=== PATIENT | female | born 1960 | race Caucasian/White ===

== ENCOUNTER 2018-03-28 12:34 | Emergency (ER) | payer OTHER, MEDICAID, SELFPAY ==
[2018-03-28] VITALS (8 sets, daily range): BP systolic 105–135; BP diastolic 56–90; PULSE 69–114; RESP 15–21; TEMP 37.6–38.8; O2SAT 97–100; BMI 21.9
--- NOTE | 2018-03-28 12:48 | DI.RAD.S_ITS ---
PROCEDURE: XR CHEST 1V INDICATIONS: suspected sepsis TECHNIQUE: One view of the chest was acquired. COMPARISON: None. FINDINGS: Surgical changes and devices: None. Lungs and pleura: Lungs are clear. No pleural effusions or pneumothorax. Mediastinum: Mediastinal contours appear normal. Heart size is normal. Bones and chest wall: No suspicious bony lesions. Overlying soft tissues appear unremarkable. IMPRESSION: No acute cardiopulmonary pathology. Dictated by: Owen Mayo M.D. on 03/28/2018 at 13:21 Approved by: Owen Mayo M.D. on 03/28/2018 at 13:21
[2018-03-28 13:28] LABS: Add Manual Diff / Slide Review NO; Basophils Absolute Auto 0 /uL (0-100); Basophils Percent Auto 0.1 % (0-2); Eosinophils Absolute Auto 0 /uL (0-450); Eosinophils Percent Auto 0.1 % (2-4); Hematocrit 41.6 % (36-46); Hemoglobin 13.8 g/dL (12.0-16.0); Lymphocytes Absolute Auto 1000 /uL (1100-4500); Lymphocytes Percent Auto 5.4 % (25-40); Mean Corpuscular HGB Conc 33.1 % (30-36); Mean Corpuscular Hemoglobin 31.2 PG (26-34); Mean Corpuscular Volume 94.3 fL (80-100); Monocytes Absolute Auto 800 /uL (0-900); Monocytes Percent Auto 4.3 % (3-14); Neutrophils Absolute Auto 16200 /uL (1500-7000); Neutrophils Percent Auto 90.1 % (50-75); Platelet Count 293 X10^3/uL (150-400); Red Blood Cell Count 4.41 X10^6/uL (4.0-5.2); Red Cell Distribution Width 12.9 % (11.6-14.8)
[2018-03-28] MEDS: IBUPROFEN 400 MG TABLET 800 MG PO (13:38)
[2018-03-28 13:39] LABS: INR 1.1 (0.9-1.3); Prothrombin Time 12.7 SECONDS (10.1-12.7)
[2018-03-28] MEDS: SODIUM CHLORIDE 0.9% 1,000 ML 1000 ML IV (13:39)
[2018-03-28 13:42] LABS: PTT Partial Thromboplastin Tim 31 SECONDS (26.4-36.2)
[2018-03-28 13:49] LABS: Alanine Aminotransferase 19 IU/L (9-52); Albumin Globulin Ratio 1.5 (1.0-2.8); Alkaline Phosphatase 112 U/L (38-126); Aspartate Aminotransferase 20 IU/L (14-36); BUN Creatinine Ratio 17.1 (6-22); Bilirubin Total 0.7 mg/dL (0.2-1.3); Blood Urea Nitrogen 12 mg/dL (7-17); Calcium 9.7 mg/dL (8.4-10.2); Carbon Dioxide 26 mmol/L (22-32); Chloride 99 mmol/L (98-107); Estimated Glomerular Filt Rate > 60.0 mL/min (>60); Globulin 3.4 g/dL (1.7-4.1); Glucose 117 mg/dL (70-100); HEMOLYSIS < 15 (0-50); Lipase 49 U/L (23-300); Potassium 3.6 mmol/L (3.4-5.1); Sodium 138 mmol/L (137-145); Total Protein 8.4 g/dL (6.3-8.2)
[2018-03-28 13:51] LABS: Lactate (Lactic Acid) 0.9 mmol/L (0.7-2.1)
[2018-03-28 13:55] LABS: Influenza A and B by PCR Rapid Negative (Negative)
--- NOTE | 2018-03-28 14:12 | ED.ABDPAIN ---
HPI - Abdominal Pain General Chief Complaint: Abdominal Pain Stated Complaint: right side abdominal pain and fever and chills Time Seen by Provider: 03/28/18 12:46 Source: patient Mode of arrival: ambulatory Limitations: no limitations History of Present Illness HPI narrative: Patient complains of right flank pain for months, but states that has gotten worse over the last couple of days. She states she has also had a sore throat and has been urinating a lot. Patient states she has not had any dysuria. No diarrhea. No vomiting, though she has been a little bit nauseated. No cough or shortness of breath. No chest pain. Patient states that her pain right now is about a 3/10, though it does get worse, to about a 5/10. No blood in her urine. No other complaints at this time. Related Data Home Medications Medication Instructions Recorded Confirmed Vitamin D3 1 cap PO DAILY 03/28/18 03/28/18 biotin 1 dose PO DAILY 03/28/18 03/28/18 tobramycin-dexamethasone 1 applic EYE-LEFT DIRECTED 03/28/18 03/28/18 vitamin E 1 cap PO DAILY 03/28/18 03/28/18 Allergies Allergy/AdvReac Type Severity Reaction Status Date / Time No Known Drug Allergies Allergy Verified 03/28/18 12:42 Review of Systems Review of Systems ROS Unobtainable: All systems reviewed & are unremarkable except as noted in HPI and below Constitutional Denies chills, Denies fever(s), Denies lethargy and Denies weakness Eyes Denies change in vision, Denies eye discharge, Denies irritation and Denies loss of vision ENT Ears, Nose, Mouth, and Throat: Denies change in voice, Denies neck pain and Denies sore throat Cardiovascular Denies chest pain, Denies irregular heart rhythm, Denies lightheadedness, Denies palpitations, Denies dyspnea, Denies dyspnea on exertion and Denies orthopnea Respiratory Denies cough, Denies dyspnea, Denies dyspnea on exertion and Denies wheezing Gastrointestinal Gastrointestinal: Reports abdominal pain, Denies change in bowel habits, Denies diarrhea, Reports nausea and Denies vomiting Genitourinary Denies hematuria, Denies flank pain, Denies urinary incontinence and Denies urinary urgency Musculoskeletal Denies neck pain Integumentary/Breasts Denies pruritus, Denies erythema, Denies rash and Denies wounds Neurologic Denies confusion, Denies loss of vision and Denies weakness Psychiatric Denies anxiety, Denies confusion, Denies depression, Denies homicidal ideation and Denies suicidal ideation Endocrine Denies palpitations Hematologic/Lymphatic Denies easy bruising Allergic/Immunologic Denies wheezing [facility] Medical History Abdominal pain (Acute) Surgical History History of cholecystectomy (Acute) Social History Smoking Status: Never smoker Social History Smoking Status: Never smoker Exam Initial Vital Signs Initial Vital Signs: Vital Signs Temperature 101.9 F H 03/28/18 12:38 Pulse Rate 114 H 03/28/18 12:38 Respiratory Rate 18 03/28/18 12:38 Blood Pressure 130/90 03/28/18 12:38 Pulse Oximetry 97 03/28/18 12:38 Const General: cooperative and well developed Nutritional Appearance: well nourished Orientation: alert, awake, oriented x3 and not confused HENCT Head: normocephalic and atraumatic Ears: external ears normal Nose: external nose normal and No nasal discharge Face and sinus: face symmetric and No dry mucous membranes Mouth: oral mucosae normal and moist mucous membranes Teeth and gingiva: dentition normal Eyes General: appearance normal, both eyes and all related structures Eyelids: eyelids normal Conjunctivae: conjunctivae normal Sclera: sclerae normal Pupils: PERRL EOM: EOM intact bilaterally Neck Neck: normal visual inspection, trachea midline, No lymphadenopathy, No midline deformity and No JVD Lymphatic: No lymphedema Chest Chest: normal inspection of the chest Resp Effort & Inspection: normal respiratory effort, able to speak in complete sentences, no respiratory distress and no use of accessory muscles Auscultation: clear to auscultation bilaterally, no rales, no rhonchi and no wheezes Cardio Rate: regular rate Rhythm: regular rhythm Heart Sounds: no click, no gallops, no murmurs and no rubs Pulses: normal peripheral pulses GI Inspection: non-distended Palpation: soft, no hepatosplenomegaly, No guarding, No pulsatile mass and No tender Auscultation: normal bowel sounds Back/Spine/Pelvis Back: No CVA tenderness Cervical Spine: cervical ROM normal and No pain with cervical ROM Thoracic/Lumbar Spine: thoracic and lumbar spine normal to inspection Skin General: no rashes or lesions noted, No jaundice and No petechiae Neuro General: alert, oriented x3, gait normal and no focal motor deficits Speech: speech normal Extrem General: full ROM, no clubbing, cyanosis or edema, no pedal edema and no calf tenderness Psych Appearance: well kempt Mental Status: mental status grossly normal Attitude: cooperative Thought Content: normal and suicidality Judgment: judgment good Course Course Narrative: Patient was worked up with labs, influenza, UA and rapid strep, all of which were negative, other than a leukocytosis. CT scan of the abdomen and pelvis with IV contrast was performed to evaluate the patient's right flank and abdominal pain, and this was also unremarkable. I did not find evidence of a serious or emergent condition the patient. I discussed with her that she most likely has 1 of the many viral illnesses which are going around her, and that this will be self-limited. We have discussed the usual indications for return, as well as symptomatic management at home. Orders Ordered: ED Orders 03/28/18 12:48 XR chest 1V Stat 03/28/18 13:15 Complete Blood Count AUTO DIFF Stat Comprehensive Metabolic Panel Stat Influenza A and B by PCR Rapid Stat Lactate (Lactic Acid) Stat Lipase Stat Partial Thromboplastin Time Stat Procalcitonin Stat Prothrombin Time INR Stat 03/28/18 13:25 Blood Culture Stat 03/28/18 15:04 CT abdomen pelvis w con Stat 03/28/18 17:11 Strep Grp A by PCR Rapid Stat Discontinued Medications Acetaminophen (Tylenol) 975 mg PO NOW ONE Stop: 03/28/18 12:50 Last Admin: 03/28/18 13:29 Dose: Not Given Sodium Chloride (Normal Saline 0.9%) 1,000 mls @ 1,000 mls/hr IV BOLUS ONE Stop: 03/28/18 13:47 Last Infusion: 03/28/18 15:02 Dose: 0 mls/hr Admin: 03/28/18 13:39 Dose: 1,000 mls/hr Ibuprofen (Advil) 800 mg PO NOW ONE Stop: 03/28/18 12:50 Last Admin: 03/28/18 13:38 Dose: 800 mg Vital Signs - 8 hr 03/28/18 12:38 03/28/18 13:04 03/28/18 14:20 Temperature 101.9 F H 99.7 F H Pulse Rate 114 H 94 H 90 Respiratory Rate 18 17 16 Blood Pressure 130/90 Blood Pressure [Right Arm] 133/78 123/76 Pulse Oximetry 97 98 98 03/28/18 14:30 03/28/18 16:21 03/28/18 17:25 Temperature Pulse Rate 89 84 73 Respiratory Rate 15 21 19 Blood Pressure Blood Pressure [Right Arm] 135/67 124/75 115/56 L Pulse Oximetry 98 97 98 03/28/18 18:07 03/28/18 18:53 Temperature Pulse Rate 89 69 Respiratory Rate 19 16 Blood Pressure 105/62 Blood Pressure [Right Arm] 120/79 Pulse Oximetry 100 99 MDM - Abdominal Pain Medical Records Attestation: I reviewed the patient's medical records. Lab Data Attestation: I reviewed the patient's lab results. Result diagrams: 03/28/18 13:15 03/28/18 13:15 Lab Results 03/28/18 03/28/18 03/28/18 Range/Units 13:15 13:15 13:15 WBC 18.0 H (4.5-11.0) X10^3/uL RBC 4.41 (4.0-5.2) X10^6/uL Hgb 13.8 (12.0-16.0) g/dL Hct 41.6 (36-46) % MCV 94.3 (80-100) fL MCH 31.2 (26-34) PG MCHC 33.1 (30-36) % RDW 12.9 (11.6-14.8) % Plt Count 293 (150-400) X10^3/uL Neut % (Auto) 90.1 H (50-75) % Lymph % (Auto) 5.4 L (25-40) % [place] % (Auto) 4.3 (3-14) % Eos % (Auto) 0.1 L (2-4) % Baso % (Auto) 0.1 (0-2) % Neut # (Auto) 90427 H (3235-3273) /uL Lymph # (Auto) 1000 L (5796-1432) /uL [place] # (Auto) 800 (0-900) /uL Eos # (Auto) 0 (0-450) /uL Baso # (Auto) 0 (0-100) /uL PT 12.7 (10.1-12.7) SECONDS INR 1.1 (0.9-1.3) APTT 31 (26.4-36.2) SECONDS Sodium (137-145) mmol/L Potassium (3.4-5.1) mmol/L Chloride (98-107) mmol/L Carbon Dioxide (22-32) mmol/L BUN (7-17) mg/dL Creatinine (0.52-1.04) mg/dL Estimated GFR (>60) mL/min BUN/Creatinine Ratio (6-22) Glucose (70-100) mg/dL Lactate (0.7-2.1) mmol/L Calcium (8.4-10.2) mg/dL Total Bilirubin (0.2-1.3) mg/dL AST (14-36) IU/L ALT (9-52) IU/L Alkaline Phosphatase (38-126) U/L Total Protein (6.3-8.2) g/dL Albumin (3.5-5.0) g/dL Globulin (1.7-4.1) g/dL Albumin/Globulin Ratio (1.0-2.8) Lipase (23-300) U/L Procalcitonin < 0.05 (<0.5) ng/mL Influenza A & B (PCR) (Negative) 03/28/18 03/28/18 03/28/18 Range/Units 13:15 13:15 13:15 WBC (4.5-11.0) X10^3/uL RBC (4.0-5.2) X10^6/uL Hgb (12.0-16.0) g/dL Hct (36-46) % MCV (80-100) fL MCH (26-34) PG MCHC (30-36) % RDW (11.6-14.8) % Plt Count (150-400) X10^3/uL Neut % (Auto) (50-75) % Lymph % (Auto) (25-40) % [place] % (Auto) (3-14) % Eos % (Auto) (2-4) % Baso % (Auto) (0-2) % Neut # (Auto) (5655-1383) /uL Lymph # (Auto) (9316-5430) /uL [place] # (Auto) (0-900) /uL Eos # (Auto) (0-450) /uL Baso # (Auto) (0-100) /uL PT (10.1-12.7) SECONDS INR (0.9-1.3) APTT (26.4-36.2) SECONDS Sodium 138 (137-145) mmol/L Potassium 3.6 (3.4-5.1) mmol/L Chloride 99 (98-107) mmol/L Carbon Dioxide 26 (22-32) mmol/L BUN 12 (7-17) mg/dL Creatinine 0.70 (0.52-1.04) mg/dL Estimated GFR > 60.0 (>60) mL/min BUN/Creatinine Ratio 17.1 (6-22) Glucose 117 H (70-100) mg/dL Lactate 0.9 (0.7-2.1) mmol/L Calcium 9.7 (8.4-10.2) mg/dL Total Bilirubin 0.7 (0.2-1.3) mg/dL AST 20 (14-36) IU/L ALT 19 (9-52) IU/L Alkaline Phosphatase 112 (38-126) U/L Total Protein 8.4 H (6.3-8.2) g/dL Albumin 5.0 (3.5-5.0) g/dL Globulin 3.4 (1.7-4.1) g/dL Albumin/Globulin Ratio 1.5 (1.0-2.8) Lipase 49 (23-300) U/L Procalcitonin (<0.5) ng/mL Influenza A & B (PCR) Negative (Negative) Point of care testing: Point of Care Testing Rapid Strep A Negative Urine Dip Bedside Urine Glucose Negative Bedside Urine Bilirubin - Negative Bedside Urine Ketone - Negative Urine Specific [place] 1.005 Bedside Urine Occult Blood - Negative Bedside Urine pH 6.5 Bedside Urine Protein - Negative Bedside Urine Urobilinogen - Negative Bedside Urine Nitrite - Negative Bedside Urine Leukocytes - Negative Esterase Imaging Data Chest x-ray: Radiologist's impression: [address] [address] XRay Report Signed Patient: Monisha Monge RMR#: [id number] : 1Acct:[id number] Age/Sex: 58 / FDate of Service: 03/28/18 Loc: ED Accession Number: [id number] Procedure: XR chest 1V Ordering Provider: Aaliyah Mejias MD PROCEDURE: XR CHEST 1V INDICATIONS: suspected sepsis TECHNIQUE: One view of the chest was acquired. COMPARISON: None. FINDINGS: Surgical changes and devices: None. Lungs and pleura: Lungs are clear. No pleural effusions or pneumothorax. Mediastinum: Mediastinal contours appear normal. Heart size is normal. Bones and chest wall: No suspicious bony lesions. Overlying soft tissues appear unremarkable. IMPRESSION: No acute cardiopulmonary pathology. Dictated by: Owen Mayo M.D. on 03/28/2018 at 13:21 Approved by: Owen Mayo M.D. on 03/28/2018 at 13:21 CT scan - abdomen: Radiologist's impression: PROCEDURE: CT ABDOMEN PELVIS W CON INDICATIONS: Right abdominal pain for over 1 week TECHNIQUE: After the administration of intravenous contrast, 5 mm thick sections acquired from the diaphragm to the symphysis. 5 mm coronal and sagittal reformats were acquired. For radiation dose reduction, the following was used: automated exposure control, adjustment of mA and/or kV according to patient size. COMPARISON: None. FINDINGS: Image quality: Excellent. ABDOMEN: Lung bases: Lung bases are clear. Heart size is normal. Solid organs: Liver is normal in size and enhancement. Gallbladder has been previously resected. Biliary system is non dilated. Pancreas enhances normally. Spleen is normal in size and enhancement. No adrenal nodules. Kidneys demonstrate normal size and enhancement, without hydronephrosis. Peritoneum and bowel: Bowel loops demonstrate normal wall thickness and caliber. No free fluid or air. Nodes and vessels: No retroperitoneal or mesenteric adenopathy by size criteria. Aorta and inferior vena cava are normal in size. Miscellaneous: No ventral hernias. PELVIS: Genitourinary: Bladder wall thickness is normal. Miscellaneous: No inguinal hernias or adenopathy. Bones: No suspicious bony lesions. No vertebral body compression fractures. IMPRESSION: A normal or abnormal appendix could not be located but no secondary CT evidence of acute appendicitis is found. Through the right urinary tract no inflammation or calculus is seen. Prior cholecystectomy, without biliary distention. Incidental mode is made of a small water density cyst of the right posterior hepatic segment mid liver level. Dictated by: Stephon Devine M.D. on 03/28/2018 at 15:33 Approved by: Stephon Devine M.D. on 03/28/2018 at 15:35 Discharge Plan Departure Patient Disposition: Home Clinical Impression: Abdominal pain Discharge Date/Time: 03/28/18 18:53 Interventions: ED Discharge Assessment Last Done: 03/28/18 18:53 Instructions: DI for Abdominal Pain-Adult, DI for Viral Syndrome Activity Restrictions/Additional Instructions: Your tests look good for the most part. Your white blood cell count is elevated, but there is no sign of a bacterial infection. Your CT scan is unremarkable. You most likely have 1 of the many viruses are going around this time of year. This will pass on its own. Your ongoing right flank pain may be due to scar tissue that has formed since your gallbladder was removed. If this continues to be an issue for you, you can talk to your surgeon about having the scar tissue cut apart with another surgery. However, the scarring can recur sometimes, even if you have this done. Prescriptions: No Action tobramycin-dexamethasone 0.3-0.1 % drops,suspension 1 applic EYE-LEFT DIRECTED RF: 0 Vitamin D3 1 cap PO DAILY RF: 0 biotin 1 dose PO DAILY RF: 0 vitamin E 1 cap PO DAILY RF: 0 Referrals: [facility] [Provider Group]
[2018-03-28 14:14] LABS: Procalcitonin < 0.05 ng/mL (<0.5)
--- NOTE | 2018-03-28 14:17 | ED_ITS ---
HPI - Abdominal Pain General Chief Complaint: Abdominal Pain Stated Complaint: right side abdominal pain and fever and chills Time Seen by Provider: 03/28/18 12:46 Source: patient Mode of arrival: ambulatory Limitations: no limitations History of Present Illness HPI narrative: Patient complains of right flank pain for months, but states that has gotten worse over the last couple of days. She states she has also had a sore throat and has been urinating a lot. Patient states she has not had any dysuria. No diarrhea. No vomiting, though she has been a little bit nauseated. No cough or shortness of breath. No chest pain. Patient states that her pain right now is about a 3/10, though it does get worse, to about a 5/ 10. No blood in her urine. No other complaints at this time. Related Data Home Medications Medication Instructions Recorded Confirmed Vitamin D3 1 cap PO DAILY 03/28/18 03/28/18 biotin 1 dose PO DAILY 03/28/18 03/28/18 tobramycin-dexamethasone 1 applic EYE-LEFT DIRECTED 03/28/18 03/28/18 vitamin E 1 cap PO DAILY 03/28/18 03/28/18 Allergies Allergy/AdvReac Type Severity Reaction Status Date / Time No Known Drug Allergies Allergy Verified 03/28/18 12:42 Review of Systems Review of Systems ROS Unobtainable: All systems reviewed & are unremarkable except as noted in HPI and below Constitutional Denies chills, Denies fever(s), Denies lethargy and Denies weakness Eyes Denies change in vision, Denies eye discharge, Denies irritation and Denies loss of vision ENT Ears, Nose, Mouth, and Throat: Denies change in voice, Denies neck pain and Denies sore throat Cardiovascular Denies chest pain, Denies irregular heart rhythm, Denies lightheadedness, Denies palpitations, Denies dyspnea, Denies dyspnea on exertion and Denies orthopnea Respiratory Denies cough, Denies dyspnea, Denies dyspnea on exertion and Denies wheezing Gastrointestinal Gastrointestinal: Reports abdominal pain, Denies change in bowel habits, Denies diarrhea, Reports nausea and Denies vomiting Genitourinary Denies hematuria, Denies flank pain, Denies urinary incontinence and Denies urinary urgency Musculoskeletal Denies neck pain Integumentary/Breasts Denies pruritus, Denies erythema, Denies rash and Denies wounds Neurologic Denies confusion, Denies loss of vision and Denies weakness Psychiatric Denies anxiety, Denies confusion, Denies depression, Denies homicidal ideation and Denies suicidal ideation Endocrine Denies palpitations Hematologic/Lymphatic Denies easy bruising Allergic/Immunologic Denies wheezing [facility] Medical History Abdominal pain (Acute) Surgical History History of cholecystectomy (Acute) Social History Smoking Status: Never smoker Social History Smoking Status: Never smoker Exam Initial Vital Signs Initial Vital Signs: Vital Signs Temperature 101.9 F H 03/28/18 12:38 Pulse Rate 114 H 03/28/18 12:38 Respiratory Rate 18 03/28/18 12:38 Blood Pressure 130/90 03/28/18 12:38 Pulse Oximetry 97 03/28/18 12:38 Const General: cooperative and well developed Nutritional Appearance: well nourished Orientation: alert, awake, oriented x3 and not confused [place] Head: normocephalic and atraumatic Ears: external ears normal Nose: external nose normal and No nasal discharge Face and sinus: face symmetric and No dry mucous membranes Mouth: oral mucosae normal and moist mucous membranes Teeth and gingiva: dentition normal Eyes General: appearance normal, both eyes and all related structures Eyelids: eyelids normal Conjunctivae: conjunctivae normal Sclera: sclerae normal Pupils: PERRL EOM: EOM intact bilaterally Neck Neck: normal visual inspection, trachea midline, No lymphadenopathy, No midline deformity and No JVD Lymphatic: No lymphedema Chest Chest: normal inspection of the chest Resp Effort & Inspection: normal respiratory effort, able to speak in complete sentences, no respiratory distress and no use of accessory muscles Auscultation: clear to auscultation bilaterally, no rales, no rhonchi and no wheezes Cardio Rate: regular rate Rhythm: regular rhythm Heart Sounds: no click, no gallops, no murmurs and no rubs Pulses: normal peripheral pulses GI Inspection: non-distended Palpation: soft, no hepatosplenomegaly, No guarding, No pulsatile mass and No tender Auscultation: normal bowel sounds Back/Spine/Pelvis Back: No CVA tenderness Cervical Spine: cervical ROM normal and No pain with cervical ROM Thoracic/Lumbar Spine: thoracic and lumbar spine normal to inspection Skin General: no rashes or lesions noted, No jaundice and No petechiae Neuro General: alert, oriented x3, gait normal and no focal motor deficits Speech: speech normal Extrem General: full ROM, no clubbing, cyanosis or edema, no pedal edema and no calf tenderness Psych Appearance: well kempt Mental Status: mental status grossly normal Attitude: cooperative Thought Content: normal and suicidality Judgment: judgment good Course Course Narrative: Patient was worked up with labs, influenza, UA and rapid strep , all of which were negative, other than a leukocytosis. CT scan of the abdomen and pelvis with IV contrast was performed to evaluate the patient's right flank and abdominal pain, and this was also unremarkable. I did not find evidence of a serious or emergent condition the patient. I discussed with her that she most likely has 1 of the many viral illnesses which are going around her, and that this will be self-limited. We have discussed the usual indications for return, as well as symptomatic management at home. Orders Ordered: ED Orders 03/28/18 12:48 XR chest 1V Stat 03/28/18 13:15 Complete Blood Count AUTO DIFF Stat Comprehensive Metabolic Panel Stat Influenza A and B by PCR Rapid Stat Lactate (Lactic Acid) Stat Lipase Stat Partial Thromboplastin Time Stat Procalcitonin Stat Prothrombin Time INR Stat 03/28/18 13:25 Blood Culture Stat 03/28/18 15:04 CT abdomen pelvis w con Stat 03/28/18 17:11 Strep Grp A by PCR Rapid Stat Discontinued Medications Acetaminophen (Tylenol) 975 mg PO NOW ONE Stop: 03/28/18 12:50 Last Admin: 03/28/18 13:29 Dose: Not Given Sodium Chloride (Normal Saline 0.9%) 1,000 mls @ 1,000 mls/hr IV BOLUS ONE Stop: 03/28/18 13:47 Last Infusion: 03/28/18 15:02 Dose: 0 mls/hr Admin: 03/28/18 13:39 Dose: 1,000 mls/hr Ibuprofen (Advil) 800 mg PO NOW ONE Stop: 03/28/18 12:50 Last Admin: 03/28/18 13:38 Dose: 800 mg Vital Signs - 8 hr 03/28/18 12:38 03/28/18 13:04 03/28/18 14:20 Temperature 101.9 F H 99.7 F H Pulse Rate 114 H 94 H 90 Respiratory Rate 18 17 16 Blood Pressure 130/90 Blood Pressure [Right Arm] 133/78 123/76 Pulse Oximetry 97 98 98 03/28/18 14:30 03/28/18 16:21 03/28/18 17:25 Temperature Pulse Rate 89 84 73 Respiratory Rate 15 21 19 Blood Pressure Blood Pressure [Right Arm] 135/67 124/75 115/56 L Pulse Oximetry 98 97 98 03/28/18 18:07 03/28/18 18:53 Temperature Pulse Rate 89 69 Respiratory Rate 19 16 Blood Pressure 105/62 Blood Pressure [Right Arm] 120/79 Pulse Oximetry 100 99 MDM - Abdominal Pain Medical Records Attestation: I reviewed the patient's medical records. Lab Data Attestation: I reviewed the patient's lab results. Result diagrams: 03/28/18 13:15 03/28/18 13:15 Lab Results 03/28/18 03/28/18 03/28/18 Range/Units 13:15 13:15 13:15 WBC 18.0 H (4.5-11.0) X10^3/uL RBC 4.41 (4.0-5.2) X10^6/uL Hgb 13.8 (12.0-16.0) g/dL Hct 41.6 (36-46) % MCV 94.3 (80-100) fL MCH 31.2 (26-34) PG MCHC 33.1 (30-36) % RDW 12.9 (11.6-14.8) % Plt Count 293 (150-400) X10^3/uL Neut % (Auto) 90.1 H (50-75) % Lymph % (Auto) 5.4 L (25-40) % [place] % (Auto) 4.3 (3-14) % Eos % (Auto) 0.1 L (2-4) % Baso % (Auto) 0.1 (0-2) % Neut # (Auto) 90761 H (9772-2672) /uL Lymph # (Auto) 1000 L (3148-0669) /uL [place] # (Auto) 800 (0-900) /uL Eos # (Auto) 0 (0-450) /uL Baso # (Auto) 0 (0-100) /uL PT 12.7 (10.1-12.7) SECONDS INR 1.1 (0.9-1.3) APTT 31 (26.4-36.2) SECONDS Sodium (137-145) mmol/L Potassium (3.4-5.1) mmol/L Chloride (98-107) mmol/L Carbon Dioxide (22-32) mmol/L BUN (7-17) mg/dL Creatinine (0.52-1.04) mg/dL Estimated GFR (>60) mL/min BUN/Creatinine Ratio (6-22) Glucose (70-100) mg/dL Lactate (0.7-2.1) mmol/L Calcium (8.4-10.2) mg/dL Total Bilirubin (0.2-1.3) mg/dL AST (14-36) IU/L ALT (9-52) IU/L Alkaline Phosphatase (38-126) U/L Total Protein (6.3-8.2) g/dL Albumin (3.5-5.0) g/dL Globulin (1.7-4.1) g/dL Albumin/Globulin Ratio (1.0-2.8) Lipase (23-300) U/L Procalcitonin < 0.05 (<0.5) ng/mL Influenza A & B (PCR) (Negative) 03/28/18 03/28/18 03/28/18 Range/Units 13:15 13:15 13:15 WBC (4.5-11.0) X10^3/uL RBC (4.0-5.2) X10^6/uL Hgb (12.0-16.0) g/dL Hct (36-46) % MCV (80-100) fL MCH (26-34) PG MCHC (30-36) % RDW (11.6-14.8) % Plt Count (150-400) X10^3/uL Neut % (Auto) (50-75) % Lymph % (Auto) (25-40) % [place] % (Auto) (3-14) % Eos % (Auto) (2-4) % Baso % (Auto) (0-2) % Neut # (Auto) (9737-9783) /uL Lymph # (Auto) (4510-6683) /uL [place] # (Auto) (0-900) /uL Eos # (Auto) (0-450) /uL Baso # (Auto) (0-100) /uL PT (10.1-12.7) SECONDS INR (0.9-1.3) APTT (26.4-36.2) SECONDS Sodium 138 (137-145) mmol/L Potassium 3.6 (3.4-5.1) mmol/L Chloride 99 (98-107) mmol/L Carbon Dioxide 26 (22-32) mmol/L BUN 12 (7-17) mg/dL Creatinine 0.70 (0.52-1.04) mg/dL Estimated GFR > 60.0 (>60) mL/min BUN/Creatinine Ratio 17.1 (6-22) Glucose 117 H (70-100) mg/dL Lactate 0.9 (0.7-2.1) mmol/L Calcium 9.7 (8.4-10.2) mg/dL Total Bilirubin 0.7 (0.2-1.3) mg/dL AST 20 (14-36) IU/L ALT 19 (9-52) IU/L Alkaline Phosphatase 112 (38-126) U/L Total Protein 8.4 H (6.3-8.2) g/dL Albumin 5.0 (3.5-5.0) g/dL Globulin 3.4 (1.7-4.1) g/dL Albumin/Globulin Ratio 1.5 (1.0-2.8) Lipase 49 (23-300) U/L Procalcitonin (<0.5) ng/mL Influenza A & B (PCR) Negative (Negative) Point of care testing: Point of Care Testing Rapid Strep A Negative Urine Dip Bedside Urine Glucose Negative Bedside Urine Bilirubin - Negative Bedside Urine Ketone - Negative Urine Specific [place] 1.005 Bedside Urine Occult Blood - Negative Bedside Urine pH 6.5 Bedside Urine Protein - Negative Bedside Urine Urobilinogen - Negative Bedside Urine Nitrite - Negative Bedside Urine Leukocytes - Negative Esterase Imaging Data Chest x-ray: Radiologist's impression: [address] [address] XRay Report Signed Patient: Monisha Monge RMR#: [id number] : 1Acct:[id number] Age/Sex: 58 / FDate of Service: 03/28/18 Loc: ED Accession Number: [id number] Procedure: XR chest 1V Ordering Provider: Aaliyah Mejias MD PROCEDURE: XR CHEST 1V INDICATIONS: suspected sepsis TECHNIQUE: One view of the chest was acquired. COMPARISON: None. FINDINGS: Surgical changes and devices: None. Lungs and pleura: Lungs are clear. No pleural effusions or pneumothorax. Mediastinum: Mediastinal contours appear normal. Heart size is normal. Bones and chest wall: No suspicious bony lesions. Overlying soft tissues appear unremarkable. IMPRESSION: No acute cardiopulmonary pathology. Dictated by: Owen Mayo M.D. on 03/28/2018 at 13:21 Approved by: Owen Mayo M.D. on 03/28/2018 at 13:21 CT scan - abdomen: Radiologist's impression: PROCEDURE: CT ABDOMEN PELVIS W CON INDICATIONS: Right abdominal pain for over 1 week TECHNIQUE: After the administration of intravenous contrast, 5 mm thick sections acquired from the diaphragm to the symphysis. 5 mm coronal and sagittal reformats were acquired. For radiation dose reduction, the following was used: automated exposure control, adjustment of mA and/or kV according to patient size. COMPARISON: None. FINDINGS: Image quality: Excellent. ABDOMEN: Lung bases: Lung bases are clear. Heart size is normal. Solid organs: Liver is normal in size and enhancement. Gallbladder has been previously resected. Biliary system is non dilated. Pancreas enhances normally. Spleen is normal in size and enhancement. No adrenal nodules. Kidneys demonstrate normal size and enhancement, without hydronephrosis. Peritoneum and bowel: Bowel loops demonstrate normal wall thickness and caliber. No free fluid or air. Nodes and vessels: No retroperitoneal or mesenteric adenopathy by size criteria. Aorta and inferior vena cava are normal in size. Miscellaneous: No ventral hernias. PELVIS: Genitourinary: Bladder wall thickness is normal. Miscellaneous: No inguinal hernias or adenopathy. Bones: No suspicious bony lesions. No vertebral body compression fractures. IMPRESSION: A normal or abnormal appendix could not be located but no secondary CT evidence of acute appendicitis is found. Through the right urinary tract no inflammation or calculus is seen. Prior cholecystectomy, without biliary distention. Incidental mode is made of a small water density cyst of the right posterior hepatic segment mid liver level. Dictated by: Stephon Devine M.D. on 03/28/2018 at 15:33 Approved by: Stephon Devine M.D. on 03/28/2018 at 15:35 Discharge Plan Departure Patient Disposition: Home Clinical Impression: Abdominal pain Discharge Date/Time: 03/28/18 18:53 Interventions: ED Discharge Assessment Last Done: 03/28/18 18:53 Instructions: DI for Abdominal Pain-Adult, DI for Viral Syndrome Activity Restrictions/Additional Instructions: Your tests look good for the most part. Your white blood cell count is elevated , but there is no sign of a bacterial infection. Your CT scan is unremarkable. You most likely have 1 of the many viruses are going around this time of year. This will pass on its own. Your ongoing right flank pain may be due to scar tissue that has formed since your gallbladder was removed. If this continues to be an issue for you, you can talk to your surgeon about having the scar tissue cut apart with another surgery. However, the scarring can recur sometimes, even if you have this done. Prescriptions: No Action tobramycin-dexamethasone 0.3-0.1 % drops,suspension 1 applic EYE-LEFT DIRECTED RF: 0 Vitamin D3 1 cap PO DAILY RF: 0 biotin 1 dose PO DAILY RF: 0 vitamin E 1 cap PO DAILY RF: 0 Referrals: [facility] [Provider Group]
--- NOTE | 2018-03-28 15:04 | DI.CT.S_ITS ---
PROCEDURE: CT ABDOMEN PELVIS W CON INDICATIONS: Right abdominal pain for over 1 week TECHNIQUE: After the administration of intravenous contrast, 5 mm thick sections acquired from the diaphragm to the symphysis. 5 mm coronal and sagittal reformats were acquired. For radiation dose reduction, the following was used: automated exposure control, adjustment of mA and/or kV according to patient size. COMPARISON: None. FINDINGS: Image quality: Excellent. ABDOMEN: Lung bases: Lung bases are clear. Heart size is normal. Solid organs: Liver is normal in size and enhancement. Gallbladder has been previously resected. Biliary system is non dilated. Pancreas enhances normally. Spleen is normal in size and enhancement. No adrenal nodules. Kidneys demonstrate normal size and enhancement, without hydronephrosis. Peritoneum and bowel: Bowel loops demonstrate normal wall thickness and caliber. No free fluid or air. Nodes and vessels: No retroperitoneal or mesenteric adenopathy by size criteria. Aorta and inferior vena cava are normal in size. Miscellaneous: No ventral hernias. PELVIS: Genitourinary: Bladder wall thickness is normal. Miscellaneous: No inguinal hernias or adenopathy. Bones: No suspicious bony lesions. No vertebral body compression fractures. IMPRESSION: A normal or abnormal appendix could not be located but no secondary CT evidence of acute appendicitis is found. Through the right urinary tract no inflammation or calculus is seen. Prior cholecystectomy, without biliary distention. Incidental mode is made of a small water density cyst of the right posterior hepatic segment mid liver level. Dictated by: Stephon Devine M.D. on 03/28/2018 at 15:33 Approved by: Stephon Devine M.D. on 03/28/2018 at 15:35
== END 2018-03-28 18:53 | disposition home or self-care (01) ==
PROVIDERS: Emergency Provider Emergency Medicine
DX: R10.9 Unspecified abdominal pain (principal)
CPT/HCPCS: 36415; 36591; 71045; 74177; 80053; 81003; 83605; 83690; 84145; 85025; 85610; 85730; 87040; 87400; 87880; 96360; 99284; 99285; Q9967